=== PATIENT | male | born 1945 | race Caucasian/White ===

== ENCOUNTER → 2018-04-16 | Outpatient (CLI) | payer MEDICARE, OTHER ==
--- NOTE | 2018-04-16 12:41 | CT ---
EXAMINATION TYPE: CT angio tho/abd W Run Off DATE OF EXAM: 04/16/2018 9:58 AM COMPARISON: None HISTORY: Femoral occlusion, Rt leg pain CT DLP: 1385.3 mGycm Automated exposure control for dose reduction was used. TECHNIQUE: Performed without and with IV Contrast, patient injected with 125 mL of Isovue 370. . FINDINGS: CT chest: The ascending thoracic aorta at the level the main pulmonary artery is 2.9 cm. The main pul monary artery at the bifurcation is 2.5 cm. No enlarged mediastinal or hilar lymph nodes are evident. Moderate to marked coronary artery calcification is present. CT ABDOMEN: Prominence of the left adrenal gland. There is a thoracic kyphosis present. Normal append ix is noted. There is beam hardening artifact within the pelvis to the left hip prosthesis. Beam hard ening artifact at the left knee is present from the left knee prosthesis. CTA: No dissection or aneurysm is identified. Vascular calcification is within the aorta. Ascending t horacic aorta at the aortic root is 3.2 cm. The aorta at the level of the main pulmonary artery is 2. 9 cm. Aortic arch is 2.0 cm. The descending thoracic aorta above the diaphragm is 2.2 cm. The aorta t hrough the abdomen and tapers to the bifurcation. The bifurcation AP diameter of the aorta is 1.6 cm. Vascular calcifications at the aorta to the bifurcation of the iliac vessels. Common iliac vessels a re patent. Internal and external iliac vessels are patent. The proximal left internal iliac vessels m ay have stenosis at its origin. Common femoral arteries are patent. Profunda femoris and superficial femoral arteries are patent proximally. There are focal areas of narrowing within the superficial fem oral arteries. Right Superficial femoral artery within the mid portion appear to be obstructed. Right Popliteal champ ry reconstituted from collateral vessels. Left superficial femoral artery appears patent. Popliteal a rteries are patent to the trifurcation vessels. Proximal trifurcation vessels are patent. Trifurcatio n vessels appear to extend to the bilateral ankles. 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
== END | disposition home or self-care (01) ==
LOC: RADCTMAIN 08:12
PROVIDERS: ATTEND Surgery
DX: I70.201 Unspecified atherosclerosis of native arteries of extremities, right leg (principal)
CPT/HCPCS: 82565; 84520; 75635; 71275; 36415; Q9967